=== PATIENT | female | born 1990 | race Asian ===

== ENCOUNTER → 2016-06-17 | Outpatient (CLI) | payer OTHER ==
--- NOTE | 2016-06-18 08:21 | MAMMOGRAPHY REPORT ---
ULTRASOUND OF LEFT BREAST: 06/17/2016 CLINICAL HISTORY: The patient reports that her provider felt a palpable lump in the left breast duri ng a clinical exam, with associated tenderness to palpation. The patient cannot clearly feel the pratik mp. The provider order states that the lump is located in the left breast at 2:00 near the border o f the breast and axilla and measures approximately 3 cm. COMPARISON: No prior exams were available for comparison. TECHNIQUE: Real-time targeted ultrasound of the left breast was performed. FINDINGS: Real-time, high resolution targeted ultrasound was performed of the left 2:00 breast at t he site of the palpable lump felt by the patient's provider. The patient could not pinpoint the lum p herself. Sonographically normal tissue is noted, without evidence of a mass or other suspicious s onographic abnormality. During the exam, the patient reported tenderness in the left breast at 2:00 , approximately 9 cm from the nipple; no abnormality is seen in this region. Morphologically normal left axillary lymph nodes are incidentally noted. IMPRESSION: ACR BI-RADS CATEGORY 2: BENIGN No sonographic abnormality in the left breast at 2:00 in the general region of the tender palpable l eft breast lump. There is no sonographic evidence of malignancy. Recommend clinical follow-up; any decision to biopsy should be based on clinical grounds. The patient was verbally notified of the r esults. Ivelisse Paulino M.D. /:06/17/2016 14:33:17 Comber Operator: Ivelisse Paulino MD, [facility] letter sent: Normal 1/2 BI-RADS Code: ACR BI-RADS Category 2: Benign
== END | disposition home or self-care (01) ==
LOC: C.MAMM 14:09
PROVIDERS: ATTEND Internal Medicine
DX: N63 Unspecified lump in breast (principal)